=== PATIENT | female | born 1985 | race Native Hawaiian/Other Pacific Islander ===

== ENCOUNTER 2017-01-04 20:00 | Outpatient (CLI) | payer MEDICAID ==
[2017-01-04 21:15] VITALS: BP 113/65
[2017-01-04] MEDS ORDERED: LACTATED RINGERS 500 ML IV ONE (21:34)
--- NOTE | 2017-01-05 10:23 | Ultrasound Report ---
ULTRASOUND OB LIMITED History: well being, abdominal trauma during Technique: Transabdominal ultrasound with Doppler interrogation. Gestation: Single Position: Cephalic Placenta: Anterior Placental Grade: 0 No evidence for abruption. Heart Rate: 162 BPM
== END 2017-01-04 22:20 | disposition home or self-care (01) ==
LOC: TRG 20:00
PROVIDERS: ATTEND Obstetrics & Gynecology
DX: O26.892 Other specified pregnancy related conditions, second trimester (principal); S39.91XD Unspecified injury of abdomen, subsequent encounter; O47.02 False labor before 37 completed weeks of gestation, second trimester; Z3A.23 23 weeks gestation of pregnancy; X58.XXXD Exposure to other specified factors, subsequent encounter
CPT/HCPCS: 59025; 76815; J7120

== ENCOUNTER 2017-04-03 22:05 | Outpatient (CLI) | payer MEDICAID ==
[2017-04-03] MEDS ORDERED: LACTATED RINGERS 500 ML IV ONE (22:18)
[2017-04-03 22:51] VITALS: BP 114/64
== END 2017-04-03 23:02 | disposition home or self-care (01) ==
LOC: TRG 22:05
PROVIDERS: ATTEND Obstetrics & Gynecology
DX: O36.8130 Decreased fetal movements, third trimester, not applicable or unspecified (principal); O26.893 Other specified pregnancy related conditions, third trimester; R25.2 Cramp and spasm; Z3A.35 35 weeks gestation of pregnancy
CPT/HCPCS: 59025

== ENCOUNTER 2017-04-07 19:47 | Outpatient (CLI) | payer MEDICAID ==
[2017-04-07 20:40] VITALS: BP 143/74
--- NOTE | 2017-04-08 08:59 | Ultrasound Report ---
BIOPHYSICAL PROFILE: 2 - breathing movements 2 - movements 2 - posture and tone 2 - Qualitative amniotic fluid volume 8 - TOTAL SCORE OF POSSIBLE 8 Heart Rate (bpm) 141
== END 2017-04-07 22:00 | disposition home or self-care (01) ==
LOC: TRG 19:47
PROVIDERS: ATTEND Obstetrics & Gynecology
DX: O36.8130 Decreased fetal movements, third trimester, not applicable or unspecified (principal); Z3A.36 36 weeks gestation of pregnancy
CPT/HCPCS: 76819

== ENCOUNTER 2017-04-09 13:12 | Outpatient (CLI) | payer MEDICAID ==
[2017-04-09 15:14] VITALS: BP 131/76
--- NOTE | 2017-04-10 10:56 | Ultrasound Report ---
LIMITED OB ULTRASOUND: well-being. Gestation: Fuentes Position: Cephalic COBY = 15.1 cm Heart Rate: 150 BPM Estimated age is 36 weeks 4 days. BIOPHYSICAL PROFILE: 2 - breathing movements 2 - movements 2 - posture and tone 2 - Qualitative amniotic fluid volume 8 - TOTAL SCORE OF POSSIBLE 8 Heart Rate (bpm) 152
== END 2017-04-09 17:06 | disposition home or self-care (01) ==
LOC: TRG 13:12
PROVIDERS: ATTEND Obstetrics & Gynecology
DX: O47.03 False labor before 37 completed weeks of gestation, third trimester (principal); Z3A.36 36 weeks gestation of pregnancy
CPT/HCPCS: 59025; 76815; 76819

== ENCOUNTER 2017-10-15 11:00 | Outpatient (CLI) | payer MEDICAID | END 2017-10-15 11:01 | disposition home or self-care (01) | LOC: SLR 11:00 | PROVIDERS: ATTEND Otolaryngology | DX: G47.30 Sleep apnea, unspecified (principal); R40.0 Somnolence | CPT/HCPCS: G0399 ==

== ENCOUNTER 2019-03-21 23:41 | Emergency (ER) | payer MEDICAID ==
[2019-03-22 02:54] LABS: Hematocrit 37.7 % (30.3-42.9); Hemoglobin 12.4 gm/dl (10.1-14.3); Mean Corpuscular HGB Conc 33 % (30-34); Mean Corpuscular Volume 89 fl (79-97); Platelet Count 179 K/mm3 (140-440); Red Blood Count 4.23 M/mm3 (3.65-5.03); Red Cell Distribution Width 13.6 % (13.2-15.2)
[2019-03-22 03:45] LABS: BUN/Creatinine Ratio 38; Blood Urea Nitrogen 23 mg/dL (7-17); Calcium 9.6 mg/dL (8.4-10.2); Hemolysis Index 7
--- NOTE | 2019-03-22 05:09 | Emergency Department Report ---
HPI - General Chief Complaint: Chest Pain Time Seen by Provider: 03/22/19 05:09 - HPI HPI: This is a 33-year-old female reported that she had bariatric surgeon the past and drank water to fasten water got stuck in throat and after that she started having chest tightness and she usually she is able to stretch it out in relieve chest pain but now she could not so she took an ambulance to the hospital. Patient is stable in no acute distress. She said this happens to her all the time because of her bariatric surgery. Initially her chest pain was 5 out of 10 to her mid sternal area and felt tight. Upon evaluation patient said that her pain is better and resolved. She is able to tolerate fluids without any distress. Said this happened sterile time when she drinks liquids to fast. Denies any shortness of breath or cough. ED Past Medical Hx - Past Medical History Previous Medical History?: Yes Hx Hypertension: Yes (2013) Hx Heart Attack/AMI: No Hx Congestive Heart Failure: No Hx Diabetes: No Hx Deep Vein Thrombosis: No Hx Liver Disease: No Hx Renal Disease: No Hx Sickle Cell Disease: No Hx Seizures: No Hx Asthma: No Hx COPD: No Hx HIV: No - Surgical History Past Surgical History?: Yes Additional Surgical History: Gastric Sleeve September 2018 - Family History Family history: hypertension - Social History Smoking Status: Never Smoker Substance Use Type: None - Medications Home Medications: Home Medications Medication Instructions Recorded Confirmed Last Taken Type oxyCODONE /ACETAMINOPHEN [Percocet 1 tab PO Q6HR PRN #20 tablet 04/14/17 Unknown Rx /325] ED Review of Systems ROS: Stated complaint: TIGHTNESS IN CHEST, BARIATRIC PATIENT Other details as noted in HPI Constitutional: denies: chills, fever ENT: denies: ear pain, throat pain, congestion Respiratory: denies: cough, shortness of breath, SOB with exertion, SOB at rest, stridor, wheezing Cardiovascular: chest pain. denies: palpitations, dyspnea on exertion, orthopnea, edema, syncope Gastrointestinal: denies: abdominal pain, nausea, vomiting Genitourinary: denies: dysuria, hematuria Musculoskeletal: denies: back pain, joint swelling, arthralgia, myalgia Skin: denies: rash Neurological: denies: headache, weakness, numbness, paresthesias, abnormal gait, vertigo Physical Exam - Physical Exam Vital Signs: Vital Signs 03/22/19 00:28 Temperature 98 F Pulse Rate 87 Respiratory 18 Rate Blood Pressure 106/60 [Left] O2 Sat by Pulse 100 Oximetry General: This is a 33-year-old female patient here in no acute distress. Physical Exam: Head: Normocephalic atraumatic. Mouth: Oral mucosa moist, tongue is normal, uvula is midline, no [employer] or drooling, oral airways patent and uvula is Lungs: Clear to auscultated bilaterally, no rhonchi wheezes or rales. No use of accessory muscles. Neck: Supple, no tracheal deviation. No C-spine tenderness and full range of motion. Negative stridor CV: S1, S2. Regular rate . No chest wall tenderness. No crepitus. Abdomen: Nontender to palpate in all quadrants, normal bowel sounds in all quadrants. No distention. Eyes: Bilateral pupils equal and reactive to light, conjunctival injection or icterus. Bilateral EOM intact and normal accommodation. Lids are normal. No swelling noted. Skin: Patient with areas 2 face bilaterally with dry scaly, no erythema or swelling noted. No drainage or indurated area. Extremity: No cce. + 2 pulses in all extremities, no neurovascular compromise. Mood: Normal mood and behavior Neurological: No focal neurological deficit. She is able to ambulate without any difficulties. Normal gait, speech is clear fluid, she is alert and oriented 3, no motor or sensory deficits. Normal strength all extremities and normal reflexes. ED Course Vital Signs 03/22/19 00:28 Temperature 98 F Pulse Rate 87 Respiratory 18 Rate Blood Pressure 106/60 [Left] O2 Sat by Pulse 100 Oximetry - Reevaluation(s) Reevaluation #1: 03/22/19 05:41 Patient here for chest pain and relates it to drinking water to fast and she had gastric bypass surgery and when this happen she gets the chest problem that is stuck in her chest. She states that she has been here it went away and she feels fine now. EKG shows sinus rhythm ED Medical Decision Making - Lab Data Result diagrams: 03/22/19 02:40 03/22/19 02:40 Lab Results 03/22/19 03/22/19 Range/Units 02:40 02:40 WBC 6.4 (4.5-11.0) K/mm3 RBC 4.23 (3.65-5.03) M/mm3 Hgb 12.4 (10.1-14.3) gm/dl Hct 37.7 (30.3-42.9) % MCV 89 (79-97) fl MCH 29 (28-32) pg MCHC 33 (30-34) % RDW 13.6 (13.2-15.2) % Plt Count 179 (140-440) K/mm3 Sodium 142 (137-145) mmol/L Potassium 4.2 (3.6-5.0) mmol/L Chloride 105.5 (98-107) mmol/L Carbon Dioxide 24 (22-30) mmol/L Anion Gap 17 mmol/L BUN 23 H (7-17) mg/dL Creatinine 0.6 L (0.7-1.2) mg/dL Estimated GFR > 60 ml/min BUN/Creatinine Ratio 38 % Glucose 92 (65-100) mg/dL Calcium 9.6 (8.4-10.2) mg/dL - EKG Data -: EKG Interpreted by Me (Dr. Rodriguez) EKG shows normal: sinus rhythm Rate: normal - EKG Data Interpretation: normal EKG - Medical Decision Making 33-year-old female in no acute distress. Physical exam is normal and she is no longer having any chest tightness because she said the water bubble has resolved. She has no history of heart disease and EKG with sinus rhythm that and no abnormality detected. I discussed the patient and EKG results, diagnosis and treatment plan and she voiced understanding discharged home with family in stable condition. She is to follow-up with her primary care physician tomorrow and she voiced understanding she also understand if her chest pain returns to re turn to the emergency room. Critical care attestation.: If time is entered above; I have spent that time in minutes in the direct care of this critically ill patient, excluding procedure time. ED Disposition Clinical Impression: Atypical chest pain Disposition: DC-01 TO HOME OR SELFCARE Is pt being admited?: No Does the pt Need Aspirin: No Condition: Stable Instructions: Chest Pain (ED) Additional Instructions: Please follow your gastric surgeon instruction and eat food in small amounts and drink water slowly and in small amounts. If you drink water and large amount very quickly this can cause you to have discomfort in the chest. If your chest discomfort return, return to the emergency room otherwise follow- up with your primary care physician tomorrow. Referrals: PRIMARY CAREMD [Primary Care Provider] - 03/23/19 Forms: Accompanied Note, Work/School Release Form(ED)
[2019-03-22 07:07] VITALS: BP 105/64
== END 2019-03-22 06:05 | disposition home or self-care (01) ==
LOC: ED 23:41
DX: R07.89 Other chest pain (principal); I10 Essential (primary) hypertension; Z98.84 Bariatric surgery status; Z79.899 Other long term (current) drug therapy; Z88.1 Allergy status to other antibiotic agents
CPT/HCPCS: 36415; 80048; 85027; 93005; 93010